=== PATIENT | female | born 1940 | race Caucasian/White ===

== ENCOUNTER 2021-03-28 07:06 | Observation (INO) ==
[2021-03-28 07:39] LABS: Basophils % 0.3 %; Eosinophils # 0.2 K/mcL (0.0-0.6); Eosinophils % 2.2 %; Hematocrit 40.7 % (35.3-44.9); Hemoglobin 12.9 g/dL (11.5-15.4); Immature Granulocytes % 0.2 % (0-4); Lymphocytes # 1.5 K/mcL (0.6-4.6); Lymphocytes % 14.6 %; Mean Corpuscular HGB Conc 31.7 g/dL (31.6-35.5); Mean Corpuscular Volume 85.1 fL (83.0-100.0); Mean Platelet Volume 9.9 fL (9.4-12.4); Monocytes # 0.6 K/mcL (0.0-1.3); Monocytes % 6.4 %; Neutrophils # 7.7 K/mcL (1.6-8.9); Platelet Count 274 K/mcL (140-400); Red Blood Count 4.78 M/mcL (3.82-4.97); Red Cell Distribution Width 14.5 % (11.5-14.5); Segmented Neutrophils % 76.3 %; White Blood Count 10.1 K/mcL (4.3-11.1)
[2021-03-28 08:00] LABS: Alanine Aminotransferase 12 Units/L (7-52); Albumin 3.7 g/dL (3.5-5.7); Albumin/Globulin Ratio 1.4 (1.1-2.2); Alkaline Phosphatase 56 Units/L (34-104); Aspartate Amino Transferase 12 Units/L (13-39); BUN/Creatinine Ratio 21 (6-26); Bilirubin,Direct 0.1 mg/dL (0.0-0.2); Bilirubin,Indirect 0.6 mg/dL (0.0-1.0); Bilirubin,Total 0.7 mg/dL (0.3-1.0); Blood Urea Nitrogen 20 mg/dL (8-23); Calcium 9.5 mg/dL (8.6-10.3); Carbon Dioxide 27 mEq/L (23-29); Chloride 107 mEq/L (98-107); Globulin 2.7 g/dL (2.4-3.5); Glucose 121 mg/dL (70-105); Lipase 11 Units/L (11-82); Osmolality,Calculated 294 (280-300); Potassium 3.8 mEq/L (3.5-5.1); Sodium 140 mEq/L (136-145); Total Protein 6.4 g/dL (6.4-8.9); Troponin I < 0.03 ng/mL (< 0.04); eGFR For African Americans > 60 (> 60); eGFR For Non-African Americans 55 (> 60)
[2021-03-28] MEDS ORDERED: Isovue-370 500 ML BOTTLE IVP ONE (08:49)
[2021-03-28] MEDS ORDERED: Acetaminophen 325 MG TABLET PO ONE (08:50)
[2021-03-28] MEDS ORDERED: MOM Conc 10 ML UD.LIQ PO PRN (12:11)
[2021-03-28] MEDS ORDERED: Mag Hydrox/Al Hydrox/Simeth 30 ML UDC PO PRN (12:11)
[2021-03-28] MEDS ORDERED: Naloxone 0.4 MG/ML INJ IVP PRN (12:11)
[2021-03-28] MEDS ORDERED: Ondansetron ODT 4 MG TAB.RAPDIS SL PRN (12:11)
[2021-03-28] MEDS ORDERED: Perflutren Lipid Microsphere 1.3 ML in 0.9 % Sodium Chloride 8.7 ML IVP PRN (12:12)
[2021-03-28] MEDS ORDERED: Dextrose Gel 15 GM/37.5 ML TUBE PO PRN ×2 (12:19)
[2021-03-28] MEDS ORDERED: *HR* Dextrose 50 % in Water (Vial) 50 ML VIAL IVP PRN (12:19)
[2021-03-28] MEDS ORDERED: D5% in Water 1,000 ML IVC PRN (12:19)
[2021-03-28] MEDS: Insulin LISPRO 300 UNITS/3 ML VIAL SUBQ SCH ×3 (14:15→19:51)
[2021-03-28] MEDS: amLODIPine 5 MG TABLET PO SCH (14:42)
[2021-03-28 16:07] LABS: Estimated Average Glucose 123 mg/dl; Hemoglobin A1C 5.9 %
[2021-03-28] MEDS ORDERED: Nitroglycerin 0.4 MG TAB.SUBL SL PRN (16:15)
[2021-03-28] MEDS: Melatonin 3 MG TABLET PO PRN (21:34)
[2021-03-29] MEDS ORDERED: Morphine Sulfate 2 MG/ML SYRINGE IVP ONE (00:59)
[2021-03-29 01:46] LABS: Hematocrit 40.8 % (35.3-44.9); Hemoglobin 13.3 g/dL (11.5-15.4); Mean Corpuscular HGB Conc 32.6 g/dL (31.6-35.5); Mean Corpuscular Hemoglobin 27.8 pg (28.0-33.3); Mean Corpuscular Volume 85.2 fL (83.0-100.0); Platelet Count 265 K/mcL (140-400); Red Blood Count 4.79 M/mcL (3.82-4.97); Red Cell Distribution Width 14.6 % (11.5-14.5); White Blood Count 11.1 K/mcL (4.3-11.1)
[2021-03-29 02:09] LABS: Alanine Aminotransferase 13 Units/L (7-52); Albumin 3.5 g/dL (3.5-5.7); Albumin/Globulin Ratio 1.2 (1.1-2.2); Alkaline Phosphatase 51 Units/L (34-104); Aspartate Amino Transferase 12 Units/L (13-39); BUN/Creatinine Ratio 22 (6-26); Bilirubin,Total 0.5 mg/dL (0.3-1.0); Blood Urea Nitrogen 21 mg/dL (8-23); Calcium 9.8 mg/dL (8.6-10.3); Carbon Dioxide 26 mEq/L (23-29); Chloride 105 mEq/L (98-107); Chol/HDL Ratio 2.8 (0-4.9); Cholesterol 113 mg/dL (< 200); Globulin 2.9 g/dL (2.4-3.5); Glucose 115 mg/dL (70-105); HDL Cholesterol 41 mg/dL (40-59); LDL Cholesterol,Calculated 56 mg/dL (< 100); Osmolality,Calculated 292 (280-300); Potassium 3.7 mEq/L (3.5-5.1); Sodium 139 mEq/L (136-145); Total Protein 6.4 g/dL (6.4-8.9); Triglycerides 80 mg/dL (< 150); eGFR For African Americans > 60 (> 60); eGFR For Non-African Americans 56 (> 60)
[2021-03-29] MEDS: *HR* Enoxaparin 40 MG/0.4 ML SYRINGE SQ SCH (05:15)
[2021-03-29] MEDS ORDERED: Morphine Sulfate 2 MG/ML SYRINGE IVP PRN (05:53)
[2021-03-29] MEDS ORDERED: Regadenoson 0.4 MG/5 ML SYRINGE IVP ONE (06:28)
[2021-03-29] MEDS: Insulin LISPRO 300 UNITS/3 ML VIAL SUBQ SCH ×4 (09:26→19:45)
[2021-03-29] MEDS: amLODIPine 5 MG TABLET PO SCH (09:49)
[2021-03-29] MEDS: Aspirin 81 MG TAB.CHEW PO SCH (09:49)
[2021-03-29] MEDS: Melatonin 3 MG TABLET PO PRN (21:10)
[2021-03-30] MEDS: *HR* Enoxaparin 40 MG/0.4 ML SYRINGE SQ SCH (05:05)
[2021-03-30] MEDS: Insulin LISPRO 300 UNITS/3 ML VIAL SUBQ SCH ×4 (07:29→21:56)
[2021-03-30] MEDS: amLODIPine 5 MG TABLET PO SCH (08:38)
[2021-03-30] MEDS: Aspirin 81 MG TAB.CHEW PO SCH (08:38)
[2021-03-31] MEDS ORDERED: Acetaminophen IV 1,000 MG/100 ML BAG IVPB ONE (02:50)
[2021-03-31] MEDS: *HR* Enoxaparin 40 MG/0.4 ML SYRINGE SQ SCH (05:08)
[2021-03-31] MEDS: Insulin LISPRO 300 UNITS/3 ML VIAL SUBQ SCH ×4 (07:40→22:02)
[2021-03-31] MEDS: Aspirin 81 MG TAB.CHEW PO SCH (08:58)
[2021-03-31] MEDS: amLODIPine 5 MG TABLET PO SCH (08:58)
[2021-03-31] MEDS: Melatonin 3 MG TABLET PO PRN (22:00)
[2021-03-31] MEDS: Nystatin POWDER 30 GM BOTTLE TP SCH (22:03)
[2021-04-01] MEDS: *HR* Enoxaparin 40 MG/0.4 ML SYRINGE SQ SCH (06:08)
[2021-04-01] MEDS: Insulin LISPRO 300 UNITS/3 ML VIAL SUBQ SCH ×4 (08:27→21:00)
[2021-04-01] MEDS: amLODIPine 5 MG TABLET PO SCH (08:35)
[2021-04-01] MEDS: Aspirin 81 MG TAB.CHEW PO SCH (08:35)
[2021-04-01] MEDS: Nystatin POWDER 30 GM BOTTLE TP SCH ×2 (09:36→19:49)
[2021-04-02] MEDS: *HR* Enoxaparin 40 MG/0.4 ML SYRINGE SQ SCH (05:34)
[2021-04-02] MEDS: amLODIPine 5 MG TABLET PO SCH (08:44)
[2021-04-02] MEDS: Aspirin 81 MG TAB.CHEW PO SCH (08:44)
[2021-04-02] MEDS: Insulin LISPRO 300 UNITS/3 ML VIAL SUBQ SCH ×4 (08:45→20:35)
[2021-04-02] MEDS: Nystatin POWDER 30 GM BOTTLE TP SCH ×2 (09:03→20:26)
[2021-04-03] MEDS: *HR* Enoxaparin 40 MG/0.4 ML SYRINGE SQ SCH (05:59)
[2021-04-03] MEDS: Insulin LISPRO 300 UNITS/3 ML VIAL SUBQ SCH ×3 (08:39→18:29)
[2021-04-03] MEDS: amLODIPine 5 MG TABLET PO SCH (08:40)
[2021-04-03] MEDS: Nystatin POWDER 30 GM BOTTLE TP SCH ×2 (08:43→21:31)
[2021-04-03] MEDS: Aspirin 81 MG TAB.CHEW PO SCH (08:46)
[2021-04-03] MEDS: Melatonin 3 MG TABLET PO PRN (21:36)
[2021-04-04] MEDS: Insulin LISPRO 300 UNITS/3 ML VIAL SUBQ SCH ×5 (00:17→21:37)
[2021-04-04 03:08] LABS: Hematocrit 40.2 % (35.3-44.9); Mean Corpuscular HGB Conc 32.3 g/dL (31.6-35.5); Mean Corpuscular Hemoglobin 27.6 pg (28.0-33.3); Mean Corpuscular Volume 85.4 fL (83.0-100.0); Mean Platelet Volume 10.1 fL (9.4-12.4); Platelet Count 326 K/mcL (140-400); Red Blood Count 4.71 M/mcL (3.82-4.97); Red Cell Distribution Width 14.2 % (11.5-14.5)
[2021-04-04] MEDS: *HR* Enoxaparin 40 MG/0.4 ML SYRINGE SQ SCH (05:20)
[2021-04-04] MEDS: amLODIPine 5 MG TABLET PO SCH (08:25)
[2021-04-04] MEDS: Aspirin 81 MG TAB.CHEW PO SCH (08:25)
[2021-04-04] MEDS: Nystatin POWDER 30 GM BOTTLE TP SCH ×2 (08:27→21:34)
[2021-04-04] MEDS: Melatonin 3 MG TABLET PO PRN (21:33)
[2021-04-05 04:12] LABS: Basophils # 0.1 K/mcL (0.0-0.2); Basophils % 0.4 %; Eosinophils # 0.4 K/mcL (0.0-0.6); Eosinophils % 3.7 %; Hematocrit 40.5 % (35.3-44.9); Hemoglobin 13.2 g/dL (11.5-15.4); Immature Granulocytes % 0.5 % (0-4); Lymphocytes # 1.6 K/mcL (0.6-4.6); Lymphocytes % 13.9 %; Mean Corpuscular HGB Conc 32.6 g/dL (31.6-35.5); Mean Corpuscular Hemoglobin 27.7 pg (28.0-33.3); Mean Corpuscular Volume 84.9 fL (83.0-100.0); Mean Platelet Volume 9.4 fL (9.4-12.4); Monocytes # 0.7 K/mcL (0.0-1.3); Monocytes % 6.1 %; Neutrophils # 8.7 K/mcL (1.6-8.9); Platelet Count 339 K/mcL (140-400); Red Blood Count 4.77 M/mcL (3.82-4.97); Red Cell Distribution Width 14.4 % (11.5-14.5); Segmented Neutrophils % 75.4 %; White Blood Count 11.5 K/mcL (4.3-11.1)
[2021-04-05] MEDS: *HR* Enoxaparin 40 MG/0.4 ML SYRINGE SQ SCH (05:03)
[2021-04-05] MEDS: Insulin LISPRO 300 UNITS/3 ML VIAL SUBQ SCH ×4 (07:56→20:20)
[2021-04-05] MEDS: Aspirin 81 MG TAB.CHEW PO SCH (08:02)
[2021-04-05] MEDS: amLODIPine 5 MG TABLET PO SCH (08:02)
[2021-04-05] MEDS: Nystatin POWDER 30 GM BOTTLE TP SCH ×2 (08:05→20:25)
[2021-04-06] MEDS: *HR* Enoxaparin 40 MG/0.4 ML SYRINGE SQ SCH (05:08)
[2021-04-06 06:43] LABS: Hematocrit 43.3 % (35.3-44.9); Hemoglobin 13.9 g/dL (11.5-15.4); Mean Corpuscular HGB Conc 32.1 g/dL (31.6-35.5); Mean Corpuscular Hemoglobin 27.3 pg (28.0-33.3); Mean Corpuscular Volume 85.1 fL (83.0-100.0); Mean Platelet Volume 9.8 fL (9.4-12.4); Platelet Count 322 K/mcL (140-400); Red Blood Count 5.09 M/mcL (3.82-4.97); Red Cell Distribution Width 14.5 % (11.5-14.5); White Blood Count 12.6 K/mcL (4.3-11.1)
[2021-04-06] MEDS: Aspirin 81 MG TAB.CHEW PO SCH (09:07)
[2021-04-06] MEDS: amLODIPine 5 MG TABLET PO SCH (09:07)
[2021-04-06] MEDS: Insulin LISPRO 300 UNITS/3 ML VIAL SUBQ SCH ×4 (09:08→20:07)
[2021-04-06] MEDS: Nystatin POWDER 30 GM BOTTLE TP SCH ×2 (09:08→20:23)
[2021-04-06 10:36] LABS: Bilirubin,Urine Negative (Negative); Blood,Urine Negative (Negative); Clarity,Urine Clear (Clear); Color,Urine Light-Yellow (Yellow); Glucose,Urine (UA) Normal (Normal); Ketones,Urine Negative (Negative); Leukocyte Esterase,Urine Negative (Negative); Nitrite,Urine Negative (Negative); Protein,Urine Negative (Neg-Trace); Specific Gravity,Urine 1.016 (1.010-1.025); Urobilinogen,Urine Normal (Normal)
[2021-04-06] MEDS: Melatonin 3 MG TABLET PO PRN (21:55)
[2021-04-07] MEDS: *HR* Enoxaparin 40 MG/0.4 ML SYRINGE SQ SCH (05:25)
[2021-04-07 05:31] LABS: Basophils # 0.1 K/mcL (0.0-0.2); Basophils % 0.5 %; Eosinophils # 0.3 K/mcL (0.0-0.6); Hematocrit 40.6 % (35.3-44.9); Hemoglobin 13.1 g/dL (11.5-15.4); Immature Granulocytes % 0.4 % (0-4); Lymphocytes # 1.8 K/mcL (0.6-4.6); Lymphocytes % 15.9 %; Mean Corpuscular HGB Conc 32.3 g/dL (31.6-35.5); Mean Corpuscular Hemoglobin 27.8 pg (28.0-33.3); Mean Platelet Volume 9.8 fL (9.4-12.4); Monocytes # 0.8 K/mcL (0.0-1.3); Neutrophils # 8.3 K/mcL (1.6-8.9); Platelet Count 295 K/mcL (140-400); Red Blood Count 4.72 M/mcL (3.82-4.97); Red Cell Distribution Width 14.4 % (11.5-14.5); Segmented Neutrophils % 73.2 %; White Blood Count 11.3 K/mcL (4.3-11.1)
[2021-04-07] MEDS: Insulin LISPRO 300 UNITS/3 ML VIAL SUBQ SCH ×4 (07:40→19:57)
[2021-04-07] MEDS: amLODIPine 5 MG TABLET PO SCH (08:45)
[2021-04-07] MEDS: Aspirin 81 MG TAB.CHEW PO SCH (08:45)
[2021-04-07] MEDS: Nystatin POWDER 30 GM BOTTLE TP SCH ×2 (08:46→19:42)
[2021-04-08 02:39] VITALS: PULSE 69
[2021-04-08] MEDS: *HR* Enoxaparin 40 MG/0.4 ML SYRINGE SQ SCH (05:22)
[2021-04-08 06:51] VITALS: BP 134/88; TEMP 98.2; O2SAT 93
[2021-04-08] MEDS: Insulin LISPRO 300 UNITS/3 ML VIAL SUBQ SCH (07:25)
[2021-04-08] MEDS: Aspirin 81 MG TAB.CHEW PO SCH (08:34)
[2021-04-08] MEDS: amLODIPine 5 MG TABLET PO SCH (08:34)
[2021-04-08] MEDS: Nystatin POWDER 30 GM BOTTLE TP SCH (08:40)
== END 2021-04-08 11:06 ==
LOC: EMEROOARM 07:06 → 3BNU 07:06 → SUATTDRO 11:59 → 3BNU 13:01
PROVIDERS: ADMIT Internal Medicine; ATTEND Registered Nurse